=== PATIENT | male | born 1945 | race American Indian/Alaskan Native ===

== ENCOUNTER 2016-11-15 00:53 | Emergency (ER) | payer MEDICARE ==
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
[2016-11-15 03:08] LABS: Urine Drugs of Abuse Note Disclamer
[2016-11-15 03:22] LABS: Bilirubin,Urine NEG (Negative); Blood,Urine NEG (Negative); Ketones,Urine NEG (Negative); Leukocyte Esterase,Urine NEG (Negative); Mucus,Urine FEW /HPF; Nitrite,Urine NEG (Negative); Urobilinogen,Urine < 2.0 mg/dL (<2.0)
[2016-11-15 04:00] LABS: Basophils % (Auto) 0.5 % (0.0-1.8); Eosinophils % (Auto) 1.1 % (0.0-4.3); Hematocrit 35.3 % (35.5-45.6); Mean Corpuscular HGB Conc 34 % (32-34); Mean Corpuscular Hemoglobin 29 pg (28-32); Mean Corpuscular Volume 87 fl (84-94); Platelet Count 217 K/mm3 (140-440); Red Blood Count 4.08 M/mm3 (3.65-5.03); Red Cell Distribution Width 14.5 % (13.2-15.2); White Blood Count 4.4 K/mm3 (4.5-11.0)
[2016-11-15 04:14] LABS: Anion Gap 19 mmol/L; Blood Urea Nitrogen 9 mg/dL (9-20); Calcium 8.8 mg/dL (8.4-10.2); Carbon Dioxide 23 mmol/L (22-30); Chloride 98.6 mmol/L (98-107); Glucose 93 mg/dL (75-100); Potassium 4.1 mmol/L (3.6-5.0); Sodium 136 mmol/L (137-145)
[2016-11-15] MEDS: FLOMAX PO SCH (11:11)
[2016-11-15] MEDS: FEOSOL PO SCH (11:11)
[2016-11-15] MEDS: HALDOL PO SCH ×2 (11:12→22:28)
[2016-11-15] MEDS: ZESTRIL PO SCH (11:14)
--- NOTE | 2016-11-15 16:54 | Consultation ---
History of Present Illness - Reason for Consult Consult date: 11/15/16 Reason for consult: psychiatric evaluation - Chief Complaint Chief complaint: "good" 70 year old male seen for psychiatric evaluation in the emergency department. He was brought in by [facility] due to aggressive outburst at home. Per his niece, he was upset because he could not eat a hot dog. He had just eaten 2 wolof sausages and the kids in the house were eating hotdogs. His niece states his main issue is food. He eats throughout the day and has throughout his life. He is obese. He is prescribed haldol for agitation, 2mg bid. His niece states he has not been diagnosed with schizophrenia, bipolar, or other mental illness. She reports he is mentally retarded and has been living with family members his entire life. He attends a day program and is approved to move to a nursing home. His niece told him about the move, and she states he has been mad about it. She states he cannot go back to her house at this time. She reports he takes his clothes off and scratches himself in front of the children. Pt presents alert but speech is incoherent and unintelligible with the exception of a few words. He is physically intrusive but not aggressive. Medications and Allergies Allergies Allergy/AdvReac Type Severity Reaction Status Date / Time Unable to Assess Allergy Unverified 11/15/16 01:10 Home Medications Medication Instructions Recorded Confirmed Last Taken Type Albuterol Sulfate [Ventolin HFA] 2 puff IH Q4H PRN 11/15/16 11/15/16 Unknown History Ferrous Sulfate [Feosol] 325 mg PO DAILY 11/15/16 11/15/16 11/14/16 History Haloperidol [Haldol] 2 mg PO BID 11/15/16 11/15/16 11/14/16 History Lisinopril [Zestril] 20 mg PO QDAY 11/15/16 11/15/16 11/14/16 History Tamsulosin [Flomax] 0.4 mg PO DAILY 11/15/16 11/15/16 11/14/16 History Active Meds: Active Medications Ferrous Sulfate (Feosol) 325 mg PO DAILY MARINA Stop: 11/20/16 09:59 Last Admin: 11/15/16 11:11 Dose: 325 mg Haloperidol (Haldol) 2 mg PO BID MARINA Stop: 11/20/16 09:59 Last Admin: 11/15/16 11:12 Dose: 2 mg Lisinopril (Zestril) 20 mg PO DAILY MARINA Stop: 11/20/16 09:59 Last Admin: 11/15/16 11:14 Dose: 20 mg Tamsulosin HCl (Flomax) 0.8 mg PO DAILY MARINA Stop: 11/20/16 09:59 Last Admin: 11/15/16 11:11 Dose: 0.8 mg Past psychiatric history - Past Medical History Past Medical History: other (obese) - past Psychiatric treatment and history psychiatric treatment history: MR - Social History Social history: other (He lived with family all him life. When his grandmother at 89, he moved in with his aunt, and then his niece 6 years ago) Mental Status Exam - Vital signs Last Vital Signs Temp 97.4 F L 11/15/16 11:16 Pulse 76 11/15/16 11:16 Resp 18 11/15/16 11:16 BP 183/100 11/15/16 11:16 Pulse Ox 97 11/15/16 11:16 - Exam Orientation: person Affect: other (indifferent) Mood: calm Thought content: other (unable to determine) Speech: incoherent Concentration: distractible Motor activity: normal Level of consciousness: alert Appetite: increased (chronic excessive appetite) Interaction: pleasant Results Result Diagrams: 11/15/16 03:17 11/15/16 03:17 Abnormal lab results 11/15/16 11/15/16 Range/Units 03:17 03:17 WBC 4.4 L (4.5-11.0) K/mm3 Hct 35.3 L (35.5-45.6) % [place] % (Auto) 7.6 H (0.0-7.3) % Lymph # 0.7 L (1.2-5.4) K/mm3 Seg Neutrophils % 75.6 H (40.0-70.0) % Sodium 136 L (137-145) mmol/L All other labs normal. Assessment and Plan Assessment and plan: His behaviors are characteristic of someone with mental retardation. He has low frustration tolerance and difficulty communicating. He is a low risk of harm to himself or others. His niece is his payee. He is expected to move to the nursing home as soon as a walk through is completed. His case packer is Tania Bush [phone] Recommendation: Rescind 1013 and have the nephrology social worker assist in identifying appropriate placement. Continue home medication for agitation, Haldol 2mg bid.
[2016-11-16] MEDS ORDERED: IMODIUM PO ONE (10:45)
[2016-11-16] MEDS ORDERED: IMODIUM ONE (10:46)
[2016-11-16] MEDS: HALDOL PO SCH (11:16)
[2016-11-16] MEDS: FLOMAX PO SCH (11:16)
[2016-11-16] MEDS: FEOSOL PO SCH (11:16)
[2016-11-16] MEDS: ZESTRIL PO SCH (11:16)
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
--- NOTE | 2016-11-16 17:49 | Emergency Department Report ---
Blank Doc - Documentation Documentation: Physician and evaluated by [facility] is been rescinded the patient will be able to go with his family.
[2016-11-16 17:59] VITALS: BP 147/72
== END 2016-11-16 18:07 ==
LOC: ED 00:53 → EEVIPCON 00:53 → ED 11-16 18:07
DX: F91.8 Other conduct disorders (principal)
CPT/HCPCS: 36415; 80048; 80307; 81001; 85025; 99284; G0480; 80320

== ENCOUNTER 2020-08-26 10:07 | Outpatient (CLI) | payer MEDICARE ==
[2020-08-26 10:57] LABS: Hematocrit 39.9 % (35.5-45.6); Hemoglobin 13.7 gm/dl (11.8-15.2); Mean Corpuscular HGB Conc 34 % (32-34); Mean Corpuscular Volume 89 fl (84-94); Platelet Count 227 K/mm3 (140-440); Red Blood Count 4.48 M/mm3 (3.65-5.03); Red Cell Distribution Width 13.3 % (13.2-15.2)
--- NOTE | 2020-08-26 11:01 | XRay Report ---
CHEST 2 VIEWS INDICATION: SHORTNESS OF BREATH/ASTHMA. COMPARISON: None FINDINGS: Support devices: None. Heart: Within normal limits. Lungs/pleura: No acute air space or interstitial disease. No pneumothorax. Additional findings: None. IMPRESSION: No acute findings. Signer Name: Nghia Haas Jr, MD Signed: 08/26/2020 10:56 AM Workstation Name: [id number]
[2020-08-26 11:33] LABS: Albumin 4.2 g/dL (3.9-5); Calcium 9.3 mg/dL (8.4-10.2); Chol/HDL Ratio 2.66 %
== END 2020-08-26 10:08 | disposition home or self-care (01) ==
LOC: LAB 10:07
PROVIDERS: ATTEND Internal Medicine
DX: J45.909 Unspecified asthma, uncomplicated (principal); J30.89 Other allergic rhinitis; G47.9 Sleep disorder, unspecified; E66.9 Obesity, unspecified; I10 Essential (primary) hypertension; N40.0 Benign prostatic hyperplasia without lower urinary tract symptoms; E07.9 Disorder of thyroid, unspecified
CPT/HCPCS: 36600; 71046; 80053; 80061; 82785; 82805; 84436; 84443; 85027; 86003